=== PATIENT | male | born 1995 | race Caucasian/White ===

== ENCOUNTER 2018-01-30 04:32 | Emergency (ER) | payer OTHER ==
[~2018-01-30] VITALS: Ht 182.9 cm; Wt 67.0 kg
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
[2018-01-30 05:09] LABS: HEMOGLOBIN ISTAT 14.6 gm/dL; POTASSIUM ISTAT 3.7 mmol/L (3.5-5.0)
[2018-01-30 05:48] VITALS: BP 125/74
--- NOTE | 2018-01-31 08:52 | EKG ---
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
== END 2018-01-30 05:48 | disposition home or self-care (01) ==
LOC: ER 04:32 → EEVIPCON 04:32 → ER 05:48
DX: Z71.1 Person with feared health complaint in whom no diagnosis is made (principal); R40.20 Unspecified coma; F12.129 Cannabis abuse with intoxication, unspecified; Z88.0 Allergy status to penicillin; Z88.8 Allergy status to other drugs, medicaments and biological substances
CPT/HCPCS: 36415; 80047; 85014; 85018; 99284-25; 99285-25